=== PATIENT | female | born 1950 | race Caucasian/White ===

== ENCOUNTER → 2016-12-03 | Day surgery (SDC) | payer MEDICARE, BC ==
[~2016-12-03] MED LIST: ACIDOPHILUS1 EAC1 PO; ALLEGRA ALLERG180 M1 PO; ALLEGRA-D 24 H1 EACH PO; ALLEGRA-D1 TAB PO; BACTROBAN22 GM TP; CINNAMON500 M1 PO; CINNAMON500 MG PO; DESONIDE TP; DESONIDE15 G1 TP; FEXOFENADINE H180 M1 PO; FISH OIL 1,2001 CAP PO; FISH OIL 1,2001 EAC5 PO; FLEXERIL10 MG PO; GLIPIZIDE10 MG; GLUCOPHAGE1000 MG; GLUCOPHAGE1000 MG PO; GLUCOPHAGE500 MG/TAB PO; HAIR, SKIN & N1 EAC1 PO; HAIR, SKIN & N1 EACH PO; HYDROCODON-ACE1 EA16 PO; IMODIUM A-D2 M3 PO; JANUVIA; KRILL OIL 5001 EAC1 PO; LEVEMIR100 UNITS/ SC; LEXAPRO5 MG; LOPRESSOR100 MG PO; LORTAB 5/500 TA1 TAB; LORTAB 7.5/5001 TAB PO; METFORMIN HCL1000 M2 PO; METFORMIN HCL500 M2 PO; METOPROLOL TAR100 M2 PO; MULTI-VITAMIN1 TAB PO; NASACORT10.8 M1; NASACORT10.8 M1 NS; NEXIUM40 MG; NORCO 10/3251 TAB PO; NORCO 5/325 TAB1 TAB PO; NOVOLOG100 UNITS/ SC; NUVIGIL50 MG PO; OMEPRAZOLE20 M2 PO; ONDANSETRON ODT4 M1 PO; ONE DAILY1 EAC4 PO; PENICILLIN V P500 MG PO; PERCOCET 5/3251 TAB PO; PERCOLONE5 MG PO; PRILOSEC OTC20 M1 PO; TOPROL XL100 MG; TOUJEO SOL300 UNIT/1 SC; TRADJENTA5 M1 PO; TRADJENTA5 MG PO; TRAMADOL HCL50 M2 PO; TRIDESILON60 GM TP; VITAMIN D3400 UNI2 PO; VITAMIN D3400 UNI5 PO; VITAMIN D35000 UNI2 PO; WOMEN'S DAILY1 EAC5 PO; ZYRTEC-D T1 TAB.SR .
== END ==
LOC: US 09:08
DX: R18.8 Other ascites (principal); K74.69 Other cirrhosis of liver; Z53.9 Procedure and treatment not carried out, unspecified reason